=== PATIENT | female | born 1955 | race Two or more races ===

== ENCOUNTER → 2016-09-25 | Outpatient (CLI) | payer BC ==
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
== END ==
LOC: M PAIN 11:20
PROVIDERS: ATTEND Nurse Practitioner Family
DX: G89.29 Other chronic pain (principal); M12.88 Other specific arthropathies, not elsewhere classified, other specified site; M54.5 Low back pain; I10 Essential (primary) hypertension; E03.9 Hypothyroidism, unspecified; L40.9 Psoriasis, unspecified; K21.9 Gastro-esophageal reflux disease without esophagitis; F17.200 Nicotine dependence, unspecified, uncomplicated; Z91.041 Radiographic dye allergy status; Z88.8 Allergy status to other drugs, medicaments and biological substances; Z88.5 Allergy status to narcotic agent; Z91.040 Latex allergy status; Z91.010 Allergy to peanuts; Z79.82 Long term (current) use of aspirin; Z79.891 Long term (current) use of opiate analgesic; Z79.1 Long term (current) use of non-steroidal anti-inflammatories (NSAID); Z79.899 Other long term (current) drug therapy; Z86.711 Personal history of pulmonary embolism

== ENCOUNTER → 2016-10-13 | Outpatient (CLI) | payer BC ==
--- NOTE | 2016-10-21 00:33 | ECWPNPC ---
PATIENT NAME: BRENDA BARROSO : 1955 GENDER: FEMALE VISIT DATE: 10/13/2016 DISCHARGE DATE: 10/13/16 1552 VISIT LOCKED DATE TIME: PHYSICIAN: ANTHONY OLSEN RESOURCE: ANTHONY OLSEN REASON FOR APPOINTMENT 1. LOW BACK HISTORY OF PRESENT ILLNESS HISTORY OF PRESENT ILLNESS: PAIN THE PATIENT DESCRIBES THE PAIN... FALL RISK SCREENING: SCREENING :NO FALLS IN THE PAST YEAR TODAY'S VISIT: NOTES: RATES PAIN TODAY 10/10. DESCRIBES PAIN CONSTANT AND IS PRESENT IN LOW BACK, HIPS AND KNEES. WEANED FROM SEROUQUEL AND STARTED AMITRIPTILINE - DEVELOPED PALIPITATONS SO STOPPED AMITRIPTILINE. RESTARTED SEROQUEL. IS HAVING SEVERE HOT FLASHES, WHICH DISRUPTS SLEEP. WORST PAIN IS BACK AND HIPS. CAN NOT FIND A CONFORTABLE POSITION. CURRENT MEDICATIONS TAKING VOLTAREN 1 % GEL DIRECTED TRANSDERMAL FOUR TIMES DAILY NEEDED TO LOW BACK TAKING ASPIRIN 81 MG TABLET DELAYED RELEASE 1 TABLET ORALLY ONCE A DAY TAKING ZETIA 10 MG TABLET 1 TABLET ORALLY ONCE A DAY AT BEDTIME TAKING POTASSIUM CHLORIDE ER 10 MEQ TABLET EXTENDED RELEASE 1 TABLET WITH FOOD ORALLY AT BEDTIME EVERY OTHER DAY TAKING QUETIAPINE FUMARATE 100 MG TABLET 1 TABLET ORALLY ONCE A DAY AT BEDTIME TAKING TOPIRAMATE 50 MG TABLET 1 TABLET ORALLY TWICE A DAY TAKING HYDROCHLOROTHIAZIDE 12.5 MG TABLET 1 TABLET ORALLY ONCE A DAY TAKING TIROSINT 125 MCG CAPSULE 1 CAPSULE ORALLY ONCE A DAY TAKING PANTOPRAZOLE SODIUM 40 MG TABLET DELAYED RELEASE 1 TABLET ORALLY ONCE A DAY AT BEDTIME TAKING XANAX XR 1 MG TABLET EXTENDED RELEASE 24 HOUR 1 TABLET ORALLY TWICE A DAY TAKING OXYCONTIN 10 MG TABLET ER 12 HOUR ABUSE-DETERRENT 1 TABLET ORALLY EVERY 12 HRS TAKING IBUPROFEN 600 MG TABLET 1 TABLET ORALLY THREE TIMES A DAY NEEDED FOR PAIN NOT-TAKING AMITRIPTYLINE HCL 10 MG TABLET 1 -2 TABLET ORALLY BEFORE BEDTIME MEDICATION LIST REVIEWED AND RECONCILED WITH THE PATIENT PAST MEDICAL HISTORY PULMONARY EMBOLUS 2013 HYPERTENSION HYPOTHYROIDISM ARTHRITIS CHRONIC LOW BACK PAIN PSORIASIS ALLERGIES IV CONTRAST DYE: THROAT CLOSES: ALLERGY TYLENOL: VOMITING: SIDE EFFECTS PERCOCET: VOMITING: SIDE EFFECTS LATEX (FOR ALLERGY USE ONLY): SWELLING: ALLERGY PEANUT (DIAGNOSTIC): VOMITING: SIDE EFFECTS AMITRIPTYLINE HCL: PALPITATIONS: ALLERGY SOCIAL HISTORY GENERAL: TOBACCO USE ARE YOU A:CURRENT SMOKER LEARNING BARRIERS / SPECIAL NEEDS ORIENTED TO PLAN OF CARE: PATIENT, PAIN MANAGEMENT PATIENT, ORIENTED TO PLAN OF CARE: PATIENT, PAIN MANAGEMENT PATIENT. NEW PATIENT PAIN DIARY TODAY'S VISITNOTES FROM 0-10, WHAT LEVEL IS YOUR PAIN TODAY?0 PAIN CLINIC PFS, CLERGY, PUBLIC HEALTH REFERRALS PFS REFERRAL NEEDED?NO CLERGY REFERRAL NEEDED?NO PUBLIC HEALTH REFERRAL NEEDED?NO WAS THE PROVIDER NOTIFIED OF ANY PERTINENT INFO?NO PFS REFERRAL NEEDED?NO CLERGY REFERRAL NEEDED?NO PUBLIC HEALTH REFERRAL NEEDED?NO WAS THE PROVIDER NOTIFIED OF ANY PERTINENT INFO?NO REVIEW OF SYSTEMS CONSTITUTIONAL: ANY CHANGE IN YOUR MEDICAL CONDITION? NO . CHILLS NO . FEVER NO . INFECTION: DO YOU HAVE NEW INFECTIONS? NO . DO YOU HAVE HISTORY OF MRSA? NO . MUSCULOSKELETAL: ANY NEW PATTERNS OF PAIN OR NUMBNESS? NO . GASTROENTEROLOGY: ANY NEW CHANGE IN BOWEL CONTROL? NO . GENITOURINARY: ANY NEW CHANGE IN BLADDER CONTROL? NO . IS THERE A CHANCE YOU COULD BE ? NO . HEMATOLOGY/LYMPH: DO YOU TAKE ANY BLOOD THINNERS? (FOR EXAMPLE- COUMADIN, PLAVIX, AGGRENOX, PLATEL, PRADAXA, OR XARELTO) NO . WHEN WAS YOUR LAST DOSE? DATE: TIME: . NEUROLOGY: HAVE YOU FALLEN IN THE PAST 6 MONTHS? YES . ANY NEW EXTREMITY NUMBNESS OR WEAKNESS? NO . CARDIOLOGY: DO YOU HAVE A PACEMAKER OR DEFIBRILLATOR? NO . RESPIRATORY: HAVE YOU BEEN SICK IN THE PAST WEEK? NO . FEVER NO . FLU LIKE SYMPTOMS? NO . COUGH NO . INTEGUMENTARY: DO YOU HAVE ANY RASHES OR OPEN SORES? YES, PSORIASIS . ALLERGIC/IMMUNO: ARE YOU ALLERGIC TO SHELLFISH OR IV DYE? YES, IV DYE . ANY NEW ALLERGIES? NO . PSYCHIATRIC: DO YOU HAVE THOUGHTS OF HURTING YOURSELF OR SOMEONE ELSE? NO . ARE YOU ABUSED, NEGLECTED, OR IN AN UNSAFE ENVIRONMENT? NO . ENDOCRINOLOGY: ARE YOU DIABETIC? NO . OTHER: DO YOU NEED ANY PRESCRIPTIONS? YES . IF YES, PLEASE LIST: SEROQUEL . ANY NEW PROBLEMS WITH YOUR MEDICATIONS? YES, HAD PALPITATIONS WHILE TAKING AMITRIPTYLINE AND STOPPED TAKING . WHEN DID YOU LAST EAT? ____ . WHEN DID YOU LAST DRINK? ____ . WHAT DID YOU LAST DRINK? ____ . NAME OF PERSON DRIVING YOU HOME? ____ . DO YOU HAVE ANY OTHER QUESTIONS OR CONCERNS NO . REVIEWED BY: PROVIDER: ANTHONY MADRIGAL . VITAL SIGNS WT 144.4 LBS, HT 62 IN, BMI 26.41 INDEX, BP 153/87 MM HG, HR 92 /MIN, RR 16 /MIN, TEMP 97.7 F, OXYGEN SAT % 98, NA INITIALS TL 1448, REVIEWED BY: NOBLE. EXAMINATION GENERAL EXAMINATION: PSYCHALERT , ORIENTED X 3 , ANXIOUS AND TEARFUL. LUNGS:CLEAR TO AUSCULTATION BILATERALLY. HEART:HEART RATE REGULAR. MUSCULOSKELETAL:GAIT WIDEBASED, STEPPING. TENDER OVER LUMBAR SPINOUS PROCESSES, BUT NO TENDERNESS OVER BILATERAL TROCANTER REGIONS. , TRIGGER POINTS AND TIGHT FIBROUB BANDS OVER THE THORACIC AND LUMBAR PARAVERTEBRAL MUSCLES. NO FOCAL WEAKNESS. NEUROLOGIC EXAM:CN'S II-XII GROSSLY INTACT. POOR BALANCE. NO SIGNIFICANT SENSORY CHANGES NOTED. ASSESSMENTS LUMBAR FACET ARTHROPATHY - M12.88 (PRIMARY) LOW BACK PAIN - M54.5 OTHER CHRONIC PAIN - G89.29 TREATMENT LUMBAR FACET ARTHROPATHY START TRAMADOL HCL TABLET, 50 MG, 2 TABLET, ORALLY, EVERY 6 HRS MDD=6, 30 DAY(S), 180, REFILLS 0 NOTES: AT [facility] - CHECK ON EVENING PRIMROSE OIL, AND TUMERIC.CONSIDER [facility] SERVICES[facility] TRAMADOL 2 TBS AT SUPPER AND 2 AT BEDTIME. TAKE OXYCODONE 10 MG AT MORNING ONLY FOR 1 WEEK, THEN STOP. ADD TRAMADOL 50 MG IN MORNING. PROCEDURE CODES FA211 ESTABILISHED PATIENT [facility] CHARGE DISPOSITION & COMMUNICATION FOLLOW UP 26-28 DAYS ELECTRONICALLY SIGNED BY TAMMY PIPER ON 10/20/2016 AT 06:49 PM EDT DISCLAIMER : THIS IS A VISIT SUMMARY EXTRACTED FROM THE [employer] CHART. IT IS NOT A COPY OF THE [employer] PROGRESS NOTE. MAGEND
== END ==
LOC: M PAIN 14:20
PROVIDERS: ATTEND Nurse Practitioner Family
DX: Z09 Encounter for follow-up examination after completed treatment for conditions other than malignant neoplasm (principal); G89.29 Other chronic pain; M12.88 Other specific arthropathies, not elsewhere classified, other specified site; M54.5 Low back pain; I10 Essential (primary) hypertension; E03.9 Hypothyroidism, unspecified; L40.9 Psoriasis, unspecified; F17.200 Nicotine dependence, unspecified, uncomplicated; Z91.041 Radiographic dye allergy status; Z88.6 Allergy status to analgesic agent; Z88.5 Allergy status to narcotic agent; Z91.040 Latex allergy status; Z91.010 Allergy to peanuts; Z88.1 Allergy status to other antibiotic agents; Z79.1 Long term (current) use of non-steroidal anti-inflammatories (NSAID); Z79.82 Long term (current) use of aspirin; Z79.891 Long term (current) use of opiate analgesic; Z79.899 Other long term (current) drug therapy; Z86.711 Personal history of pulmonary embolism

== ENCOUNTER → 2016-11-07 | Outpatient (CLI) | payer BC ==
--- NOTE | 2016-11-21 02:20 | ECWPNPC ---
PATIENT NAME: BRENDA BARROSO : 1955 GENDER: FEMALE VISIT DATE: 11/07/2016 DISCHARGE DATE: 11/07/16 1323 VISIT LOCKED DATE TIME: PHYSICIAN: ANTHONY OLSEN RESOURCE: ANTHONY OLSEN REASON FOR APPOINTMENT 1. 26-28 DAY HISTORY OF PRESENT ILLNESS HISTORY OF PRESENT ILLNESS: PAIN THE PATIENT DESCRIBES THE PAIN... FALL RISK SCREENING: SCREENING :NO FALLS IN THE PAST YEAR TODAY'S VISIT: NOTES: WORST IS BACK, HIPS AND KNEES. IS STILL HAVING SEVERE HOT FLASHES WITH DRRENCHING SWEATS. DISTRESSED BECAUSE PCP DECREASED ALPRAZOLAM. HAD ADVERSE REACTION TO TUMERIC WITH OVERALL SWELLING RATES PAIN LEVEL 10/10. DESCRIBES PAIN CONSTANT, SHARP, STABBING AND SHOOTING. NOTES WORST AREAS OF PAINARE THE LOW BACK HIPS AND KNEES.. CURRENT MEDICATIONS TAKING VOLTAREN 1 % GEL DIRECTED TRANSDERMAL FOUR TIMES DAILY NEEDED TO LOW BACK TAKING ASPIRIN 81 MG TABLET DELAYED RELEASE 1 TABLET ORALLY ONCE A DAY TAKING ZETIA 10 MG TABLET 1 TABLET ORALLY ONCE A DAY AT BEDTIME TAKING POTASSIUM CHLORIDE ER 10 MEQ TABLET EXTENDED RELEASE 1 TABLET WITH FOOD ORALLY AT BEDTIME EVERY OTHER DAY TAKING QUETIAPINE FUMARATE 100 MG TABLET 1 TABLET ORALLY ONCE A DAY AT BEDTIME TAKING TOPIRAMATE 50 MG TABLET 1 TABLET ORALLY TWICE A DAY TAKING HYDROCHLOROTHIAZIDE 12.5 MG TABLET 1 TABLET ORALLY ONCE A DAY TAKING TIROSINT 125 MCG CAPSULE 1 CAPSULE ORALLY ONCE A DAY TAKING PANTOPRAZOLE SODIUM 40 MG TABLET DELAYED RELEASE 1 TABLET ORALLY ONCE A DAY AT BEDTIME TAKING TRAMADOL HCL 50 MG TABLET 2 TABLET ORALLY EVERY 6 HRS MDD=6 TAKING XANAX 0.5 MG TABLET 1 TABLET ORALLY Q 8 HRS NOT-TAKING OXYCONTIN 10 MG TABLET ER 12 HOUR ABUSE-DETERRENT 1 TABLET ORALLY EVERY 12 HRS NOT-TAKING IBUPROFEN 600 MG TABLET 1 TABLET ORALLY THREE TIMES A DAY NEEDED FOR PAIN NOT-TAKING AMITRIPTYLINE HCL 10 MG TABLET 1 -2 TABLET ORALLY BEFORE BEDTIME DISCONTINUED XANAX XR 1 MG TABLET EXTENDED RELEASE 24 HOUR 1 TABLET ORALLY TWICE A DAY MEDICATION LIST REVIEWED AND RECONCILED WITH THE PATIENT PAST MEDICAL HISTORY PULMONARY EMBOLUS 2013 HYPERTENSION HYPOTHYROIDISM ARTHRITIS CHRONIC LOW BACK PAIN PSORIASIS ALLERGIES IV CONTRAST DYE: THROAT CLOSES: ALLERGY TYLENOL: VOMITING: SIDE EFFECTS PERCOCET: VOMITING: SIDE EFFECTS LATEX (FOR ALLERGY USE ONLY): SWELLING: ALLERGY PEANUT (DIAGNOSTIC): VOMITING: SIDE EFFECTS AMITRIPTYLINE HCL: PALPITATIONS: ALLERGY SOCIAL HISTORY GENERAL: TOBACCO USE ARE YOU A:CURRENT SMOKER HOW MANY CIGARETTES A DAY DO YOU SMOKE?6-10 HOW SOON AFTER YOU WAKE UP DO YOU SMOKE YOUR FIRST CIGARETTE?AFTER 60 MIN HOW OFTEN DO YOU SMOKE CIGARETTES?EVERY DAY PATIENT COUNSELED ON THE DANGERS OF TOBACCO USE AND URGED TO QUIT:11/07/2016 ARE YOU INTERESTED IN QUITTING?THINKING ABOUT QUITTING HAS GUM AT HOME PREVIOUS QUIT ATTEMPTS?YES, WITHIN THE LAST 6 MONTHS. COUNSELED THE PATIENT ON SMOKING CESSATION, EDUCATION [id number]/04/2017 LUNG CANCER SCREENING SMOKING STATUS:CURRENT SMOKER PAIN CLINIC PFS, CLERGY, PUBLIC HEALTH REFERRALS CLERGY REFERRAL NEEDED?NO WAS THE PROVIDER NOTIFIED OF ANY PERTINENT INFO?NO PFS REFERRAL NEEDED?NO PUBLIC HEALTH REFERRAL NEEDED?NO PATIENT: ____. REVIEW OF SYSTEMS CONSTITUTIONAL: ANY CHANGE IN YOUR MEDICAL CONDITION? NO . CHILLS NO . FEVER NO . INFECTION: DO YOU HAVE NEW INFECTIONS? NO . DO YOU HAVE HISTORY OF MRSA? NO . MUSCULOSKELETAL: ANY NEW PATTERNS OF PAIN OR NUMBNESS? NO . GASTROENTEROLOGY: ANY NEW CHANGE IN BOWEL CONTROL? NO . GENITOURINARY: ANY NEW CHANGE IN BLADDER CONTROL? NO . IS THERE A CHANCE YOU COULD BE ? NO . HEMATOLOGY/LYMPH: DO YOU TAKE ANY BLOOD THINNERS? (FOR EXAMPLE- COUMADIN, PLAVIX, AGGRENOX, PLATEL, PRADAXA, OR XARELTO) NO . WHEN WAS YOUR LAST DOSE? DATE: TIME: . NEUROLOGY: HAVE YOU FALLEN IN THE PAST 6 MONTHS? YES, FELL DOWN THE STAIRS A COUPLE OF MONTHS AGO, NO INJURY . ANY NEW EXTREMITY NUMBNESS OR WEAKNESS? NO . CARDIOLOGY: DO YOU HAVE A PACEMAKER OR DEFIBRILLATOR? NO . RESPIRATORY: HAVE YOU BEEN SICK IN THE PAST WEEK? NO . FEVER NO . FLU LIKE SYMPTOMS? NO . COUGH NO . INTEGUMENTARY: DO YOU HAVE ANY RASHES OR OPEN SORES? YES, PSORIOSIS ON BACK OF NECK AND LABIA . ALLERGIC/IMMUNO: ARE YOU ALLERGIC TO SHELLFISH OR IV DYE? YES . ANY NEW ALLERGIES? NO . PSYCHIATRIC: DO YOU HAVE THOUGHTS OF HURTING YOURSELF OR SOMEONE ELSE? NO . ARE YOU ABUSED, NEGLECTED, OR IN AN UNSAFE ENVIRONMENT? NO . ENDOCRINOLOGY: ARE YOU DIABETIC? NO . OTHER: DO YOU NEED ANY PRESCRIPTIONS? NO . IF YES, PLEASE LIST: ____ . ANY NEW PROBLEMS WITH YOUR MEDICATIONS? NO . WHEN DID YOU LAST EAT? ____ . WHEN DID YOU LAST DRINK? ____ . WHAT DID YOU LAST DRINK? ____ . NAME OF PERSON DRIVING YOU HOME? ____ . DO YOU HAVE ANY OTHER QUESTIONS OR CONCERNS NO . REVIEWED BY: PROVIDER: ANTHONY MADRIGAL . VITAL SIGNS WT 144.2 LBS, HT 62 IN, BMI 26.37 INDEX, BP 131/71 MM HG, HR 85 /MIN, RR 16 /MIN, TEMP 98.7 F, OXYGEN SAT % 99%, NA INITIALS SC 12:13. EXAMINATION GENERAL EXAMINATION: PSYCHALERT , ORIENTED X 3 , ANXIOUS AND TEARFUL. LUNGS:CLEAR TO AUSCULTATION BILATERALLY. HEART:HEART RATE REGULAR. MUSCULOSKELETAL:GAIT WIDEBASED, STEPPING. TENDER OVER LUMBAR SPINOUS PROCESSES, BUT NO TENDERNESS OVER BILATERAL TROCANTER REGIONS. , TRIGGER POINTS AND TIGHT FIBROUS BANDS OVER THE THORACIC AND LUMBAR PARAVERTEBRAL MUSCLES. NO FOCAL WEAKNESS. NEUROLOGIC EXAM:CN'S II-XII GROSSLY INTACT. POOR BALANCE. NO SIGNIFICANT SENSORY CHANGES NOTED. ASSESSMENTS LUMBAR FACET ARTHROPATHY - M12.88 (PRIMARY) LOW BACK PAIN - M54.5 OTHER CHRONIC PAIN - G89.29 TREATMENT LUMBAR FACET ARTHROPATHY REFILL TRAMADOL HCL TABLET, 50 MG, 2 TABLET, ORALLY, EVERY 6 HRS MDD=6, 30 DAY(S), 180, REFILLS 0 NOTES: CONTNUE CURRENT MEDS. WALK DAILY. CONTINUE ACTIVITYCONSIDER TREATMENT [facility] AT [facility]. PROCEDURE CODES FA211 ESTABILISHED PATIENT [facility] CHARGE DISPOSITION & COMMUNICATION FOLLOW UP 7 WEEKS ELECTRONICALLY SIGNED BY TAMMY PIPER ON 11/20/2016 AT 08:24 AM EDT DISCLAIMER : THIS IS A VISIT SUMMARY EXTRACTED FROM THE [employer] CHART. IT IS NOT A COPY OF THE [employer] PROGRESS NOTE. MAGEND
== END ==
LOC: M PAIN 11:40
PROVIDERS: ATTEND Nurse Practitioner Family
DX: G89.29 Other chronic pain (principal); M12.88 Other specific arthropathies, not elsewhere classified, other specified site; M54.5 Low back pain; N95.1 Menopausal and female climacteric states; R61 Generalized hyperhidrosis; I10 Essential (primary) hypertension; E03.9 Hypothyroidism, unspecified; L40.9 Psoriasis, unspecified; F17.200 Nicotine dependence, unspecified, uncomplicated; Z91.041 Radiographic dye allergy status; Z88.6 Allergy status to analgesic agent; Z88.5 Allergy status to narcotic agent; Z91.040 Latex allergy status; Z91.010 Allergy to peanuts; Z88.8 Allergy status to other drugs, medicaments and biological substances; Z79.82 Long term (current) use of aspirin; Z79.891 Long term (current) use of opiate analgesic; Z79.899 Other long term (current) drug therapy

== ENCOUNTER → 2016-11-20 | Outpatient (CLI) | payer BC ==
--- NOTE | 2016-12-01 23:56 | ECWPNPC ---
PATIENT NAME: BRENDA BARROSO : 1955 GENDER: FEMALE VISIT DATE: 11/20/2016 DISCHARGE DATE: 11/20/16 1157 VISIT LOCKED DATE TIME: PHYSICIAN: ATNHONY OLSEN RESOURCE: ANTHONY OLSEN REASON FOR APPOINTMENT 1. BACK HISTORY OF PRESENT ILLNESS HISTORY OF PRESENT ILLNESS: PAIN THE PATIENT DESCRIBES THE PAIN... FALL RISK SCREENING: SCREENING :NO FALLS IN THE PAST YEAR TODAY'S VISIT: NOTES: REPORTS HAD ADVERSE REACTION WITH TRAMADOL WITH SWOLEN TONUE, THOUGHTS OF SELF INJURY, RASH AND ELEVATED HEART RATE. STATES PAIN IS &QUOT;OVER THE TOP&QUOT;. STATES BEGAN HAVING FREQ DIARRHEA - JELLY LIKE. HAS BEEN USING A TEA AND GINGERALE FOR DIARRHEA. IS ALSO REPORTING THAT ANXIETY IS VERY HIGH AND IS ON WAITING LIST. WORST AREAS BOTH HIPS, KNEES AND LOW BACK. IS TAKING MOTRIN 800MG Q 6 HRS WITH SOME RELIEF NOTED. . CURRENT MEDICATIONS TAKING VOLTAREN 1 % GEL DIRECTED TRANSDERMAL FOUR TIMES DAILY NEEDED TO LOW BACK TAKING ASPIRIN 81 MG TABLET DELAYED RELEASE 1 TABLET ORALLY ONCE A DAY TAKING ZETIA 10 MG TABLET 1 TABLET ORALLY ONCE A DAY AT BEDTIME TAKING POTASSIUM CHLORIDE ER 10 MEQ TABLET EXTENDED RELEASE 1 TABLET WITH FOOD ORALLY AT BEDTIME EVERY OTHER DAY TAKING QUETIAPINE FUMARATE 100 MG TABLET 1 TABLET ORALLY ONCE A DAY AT BEDTIME TAKING TOPIRAMATE 50 MG TABLET 1 TABLET ORALLY TWICE A DAY TAKING HYDROCHLOROTHIAZIDE 12.5 MG TABLET 1 TABLET ORALLY ONCE A DAY TAKING TIROSINT 125 MCG CAPSULE 1 CAPSULE ORALLY ONCE A DAY TAKING PANTOPRAZOLE SODIUM 40 MG TABLET DELAYED RELEASE 1 TABLET ORALLY ONCE A DAY AT BEDTIME TAKING XANAX 0.5 MG TABLET 1 TABLET ORALLY Q 8 HRS NOT-TAKING TRAMADOL HCL 50 MG TABLET 2 TABLET ORALLY EVERY 6 HRS MDD=6 NOT-TAKING OXYCONTIN 10 MG TABLET ER 12 HOUR ABUSE-DETERRENT 1 TABLET ORALLY EVERY 12 HRS NOT-TAKING IBUPROFEN 600 MG TABLET 1 TABLET ORALLY THREE TIMES A DAY NEEDED FOR PAIN NOT-TAKING AMITRIPTYLINE HCL 10 MG TABLET 1 -2 TABLET ORALLY BEFORE BEDTIME MEDICATION LIST REVIEWED AND RECONCILED WITH THE PATIENT PAST MEDICAL HISTORY PULMONARY EMBOLUS 2013 HYPERTENSION HYPOTHYROIDISM ARTHRITIS CHRONIC LOW BACK PAIN PSORIASIS ALLERGIES IV CONTRAST DYE: THROAT CLOSES: ALLERGY TYLENOL: VOMITING: SIDE EFFECTS PERCOCET: VOMITING: SIDE EFFECTS LATEX (FOR ALLERGY USE ONLY): SWELLING: ALLERGY PEANUT (DIAGNOSTIC): VOMITING: SIDE EFFECTS AMITRIPTYLINE HCL: PALPITATIONS: ALLERGY TRAMADOL HCL: DIARRHEA,SPASTIC MOVEMENTS, FELT LOUSY ALL OVER, FELT LIKE SHE WAS IN A FOG , SWOLLEN TONGUE: ALLERGY NAPROXEN: ANGIOEDEMA: ALLERGY SOCIAL HISTORY GENERAL: PAIN CLINIC PFS, CLERGY, PUBLIC HEALTH REFERRALS CLERGY REFERRAL NEEDED?NO WAS THE PROVIDER NOTIFIED OF ANY PERTINENT INFO?NO PFS REFERRAL NEEDED?NO PUBLIC HEALTH REFERRAL NEEDED?NO PATIENT: ____. REVIEW OF SYSTEMS CONSTITUTIONAL: ANY CHANGE IN YOUR MEDICAL CONDITION? NO . CHILLS NO . FEVER NO . INFECTION: DO YOU HAVE NEW INFECTIONS? NO . DO YOU HAVE HISTORY OF MRSA? YES, YEARS AGO ON LEFT BREAST . MUSCULOSKELETAL: ANY NEW PATTERNS OF PAIN OR NUMBNESS? NO . GASTROENTEROLOGY: ANY NEW CHANGE IN BOWEL CONTROL? YES, &QUOT;STOOLS ARE LIKE JELLO&QUOT; --FROM TRAMADOL . GENITOURINARY: ANY NEW CHANGE IN BLADDER CONTROL? NO . IS THERE A CHANCE YOU COULD BE ? NO . HEMATOLOGY/LYMPH: DO YOU TAKE ANY BLOOD THINNERS? (FOR EXAMPLE- COUMADIN, PLAVIX, AGGRENOX, PLATEL, PRADAXA, OR XARELTO) NO . WHEN WAS YOUR LAST DOSE? DATE: TIME: . NEUROLOGY: HAVE YOU FALLEN IN THE PAST 6 MONTHS? YES, MONTHS AGO-NO INJURY . ANY NEW EXTREMITY NUMBNESS OR WEAKNESS? NO . CARDIOLOGY: DO YOU HAVE A PACEMAKER OR DEFIBRILLATOR? NO . RESPIRATORY: HAVE YOU BEEN SICK IN THE PAST WEEK? NO . FEVER NO . FLU LIKE SYMPTOMS? NO . COUGH NO . INTEGUMENTARY: DO YOU HAVE ANY RASHES OR OPEN SORES? YES, PSORIOSIS IN VAGINAL AREA IS BLEEDING . ALLERGIC/IMMUNO: ARE YOU ALLERGIC TO SHELLFISH OR IV DYE? NO . ANY NEW ALLERGIES? NO . PSYCHIATRIC: DO YOU HAVE THOUGHTS OF HURTING YOURSELF OR SOMEONE ELSE? YES, HAD &QUOT;DARK THOUGHTS&QUOT; WHEN TAKING TRAMADOL . ARE YOU ABUSED, NEGLECTED, OR IN AN UNSAFE ENVIRONMENT? NO . ENDOCRINOLOGY: ARE YOU DIABETIC? NO . OTHER: DO YOU NEED ANY PRESCRIPTIONS? NO . IF YES, PLEASE LIST: ____ . ANY NEW PROBLEMS WITH YOUR MEDICATIONS? NO . WHEN DID YOU LAST EAT? ____ . WHEN DID YOU LAST DRINK? ____ . WHAT DID YOU LAST DRINK? ____ . NAME OF PERSON DRIVING YOU HOME? ____ . DO YOU HAVE ANY OTHER QUESTIONS OR CONCERNS YES, TRAMADOL NOT AGREEING WITH HER. SHE HAS HAD &QUOT;DARK THOUGHTS&QUOT;, DIARRHEA,SWOLLEN TONGUE, ABD PAIN, HEART RACED, SPASTIC MOVEMENT, FELT LIKE SHE WAS IN A FOG. IT ALSO DID NOT SEEM TO HELP HER PAIN. . REVIEWED BY: PROVIDER: ANTHONY MADRIGAL . VITAL SIGNS WT 137.2 LBS, HT 62 IN, BMI 25.09 INDEX, BP 145/90 MM HG, HR 115 /MIN, RR 16 /MIN, TEMP 99.9 F, OXYGEN SAT % 98%, NA INITIALS SC 10:26, REVIEWED BY: AD. EXAMINATION GENERAL EXAMINATION: PSYCHALERT , ORIENTED X 3 , ANXIOUS AND TEARFUL. LUNGS:CLEAR TO AUSCULTATION BILATERALLY. HEART:HEART RATE REGULAR. MUSCULOSKELETAL:GAIT WIDEBASED, STEPPING. TENDER OVER LUMBAR SPINOUS PROCESSES, BUT NO TENDERNESS OVER BILATERAL TROCANTER REGIONS. , TRIGGER POINTS AND TIGHT FIBROUS BANDS OVER THE THORACIC AND LUMBAR PARAVERTEBRAL MUSCLES. NO FOCAL WEAKNESS. NEUROLOGIC EXAM:CN'S II-XII GROSSLY INTACT. POOR BALANCE. NO SIGNIFICANT SENSORY CHANGES NOTED. ASSESSMENTS LUMBAR FACET ARTHROPATHY - M12.88 (PRIMARY) LOW BACK PAIN - M54.5 OTHER CHRONIC PAIN - G89.29 TREATMENT LUMBAR FACET ARTHROPATHY START VICOPROFEN TABLET, 7.5-200 MG, 1 TABLET NEEDED, ORALLY, EVERY 8-12 HRS MDD 2, 30 DAY(S), 60, REFILLS 0 START HYDROCODONE-IBUPROFEN TABLET, 10-200 MG, 1 TABLET NEEDED, ORALLY, EVERY 8-12 HRS PRN PAIN MDD=2, 30 DAY(S), 60, REFILLS 0 [facility] MRI HIP WITHOUT [id number] 11/20/2016 11:08:58 AM > HIP PAIN NOTES: UTOX TODAY NARCOTIC AGREEMENT TODAY. DISPOSE/COUNT TRAMADOL. CLINICAL NOTES: ISTOP REGISTRY REVIEWED AND DEMNOSTRATES COMPLLIANCE. BRINGS IN MEDICATIONS WHICH IS APPROPRIATE FOR WHAT WAS DISPENSED. RECENT URINE TOXICOLOGY REVIEWED. NO UNAUTHORIZED MEDICATIONS. NO ILLICIT SUBSTANCES AND PRESCRIBED MEDICATIONS WERE PRESENT. PREVENTIVE MEDICINE PAIN CLINIC TEACHING: MEDICATIONS PRINTED INFORMATION ON VICOPROFEN GIVEN TO AND EXPLAINED TO PT. AND SHE VERBALIZED UNDERSTANDING. PROCEDURE CODES [id number] ESTABILISHED PATIENT FORMERLY [facility] CHARGE DISPOSITION & COMMUNICATION FOLLOW UP [address] BLUE (REASON: DISCUSS PAIN TREATMENT OPTIONS INCLUDING DCS) ELECTRONICALLY SIGNED BY TAMMY PIPER ON 12/01/2016 AT 04:35 PM EDT DISCLAIMER : THIS IS A VISIT SUMMARY EXTRACTED FROM THE [employer] CHART. IT IS NOT A COPY OF THE [employer] PROGRESS NOTE. XAVIER
== END | disposition home or self-care (01) ==
LOC: M PAIN 10:00
PROVIDERS: ATTEND Nurse Practitioner Family
DX: G89.29 Other chronic pain (principal); M12.88 Other specific arthropathies, not elsewhere classified, other specified site; M54.5 Low back pain; I10 Essential (primary) hypertension; E03.9 Hypothyroidism, unspecified; L40.9 Psoriasis, unspecified; Z86.711 Personal history of pulmonary embolism; Z79.82 Long term (current) use of aspirin; Z79.899 Other long term (current) drug therapy; Z88.5 Allergy status to narcotic agent; Z88.8 Allergy status to other drugs, medicaments and biological substances; Z91.040 Latex allergy status; Z91.041 Radiographic dye allergy status; Z91.010 Allergy to peanuts

== ENCOUNTER → 2023-08-22 | Outpatient (CLI) | payer MEDICARE, BC | LOC: M RAD 08:07 | PROVIDERS: ATTEND Internal Medicine Pulmonary Disease | DX: R91.8 Other nonspecific abnormal finding of lung field (principal); J47.9 Bronchiectasis, uncomplicated; J43.2 Centrilobular emphysema; I70.0 Atherosclerosis of aorta; I25.10 Atherosclerotic heart disease of native coronary artery without angina pectoris ==

== ENCOUNTER 2023-10-03 07:26 | Day surgery (SDC) | payer MEDICARE ==
[~2023-10-03] VITALS: Ht 157.5 cm; Wt 62.5 kg
[~2023-10-03 07:26] MED LIST: ALLO300T2 PO; ALPR0.5T3 PO; EZET10TA21 PO; HYDR-3490 PO; LEVO112C PO; METO1TAB32 PO; OXYC-517 PO; OXYC30TA72 PO; PANT20TA6 PO; POTA10CA60 PO; PROM25TA12 PO; RAME8TAB2 PO; TOPI-21 PO; TRAZ-257 PO
[2023-10-03] MEDS ORDERED: SUGAMMADEX SODIUM 500 MG/5 ML VIAL (BRIDION) As Ordered ONE (07:46)
[2023-10-03] MEDS ORDERED: ONDANSETRON 4MG 2ML VIAL As Ordered ONE (07:47)
[2023-10-03] MEDS ORDERED: LIDOCAINE 2% 100MG/5ML SDV (FOR ANES.) As Ordered ONE (07:47)
[2023-10-03] MEDS ORDERED: ROCURONIUM BROMIDE 50MG/5ML VIAL As Ordered ONE (07:47)
[2023-10-03] MEDS ORDERED: propofoL 200 MG/20 ML VIAL As Ordered ONE (07:47)
[2023-10-03] MEDS ORDERED: MIDAZOLAM INJ 2MG/2ML VIAL As Ordered ONE (07:51)
[2023-10-03] MEDS ORDERED: fentaNYL 100 MCG/2 ML INJECTION As Ordered ONE (07:51)
[2023-10-03] MEDS ORDERED: LR 1,000 ML IV SCH (08:10)
[2023-10-03] MEDS: LIDOCAINE PRES-FREE 2% 10ML AMP INH ONE (08:34)
[2023-10-03] MEDS: ALBUTEROL SULFATE 2.5MG/0.5ML INH NEB SOLN INH ONE (08:34)
[2023-10-03] MEDS ORDERED: ACETAMINOPHEN 1000MG 100ML IV BAG As Ordered ONE (09:20)
[2023-10-03] MEDS: EPINEPHrine 1MG/10ML SYRINGE 1.5IN As Ordered ONE (10:00)
[2023-10-03] MEDS: CETACAINE SPRAY 5GM As Ordered ONE (10:00)
[2023-10-03] MEDS ORDERED: ONDANSETRON 4MG 2ML VIAL IV PRN (10:25)
[2023-10-03] MEDS ORDERED: fentaNYL 100 MCG/2 ML INJECTION IV PRN (10:25)
[2023-10-03 13:02] VITALS: BP 115/70; TEMP 98.3; O2SAT 94
== END 2023-10-03 13:30 | disposition home or self-care (01) ==
LOC: M SDC 07:26
PROVIDERS: ATTEND Internal Medicine Pulmonary Disease
DX: R91.8 Other nonspecific abnormal finding of lung field (principal); Z91.048 Other nonmedicinal substance allergy status; Z91.040 Latex allergy status; Z91.010 Allergy to peanuts; Z88.5 Allergy status to narcotic agent; Z79.899 Other long term (current) drug therapy; Z87.891 Personal history of nicotine dependence
CPT/HCPCS: 31624; 31627; 31628; 31629; 31654; 71045; 76000; 87070; 87102; 87116; 87205; 87206; 88108; 88173; 88305; 88313; J0131; J0171; J1100; J2250; J2405; J3010; S2900

== ENCOUNTER → 2023-11-19 | Outpatient (CLI) | payer MEDICARE | LOC: M PLARAD 14:05 | PROVIDERS: ATTEND Internal Medicine Pulmonary Disease | DX: R91.8 Other nonspecific abnormal finding of lung field (principal) | CPT/HCPCS: 78815; A9552 ==

== ENCOUNTER → 2024-08-04 | Outpatient (CLI) | payer MEDICARE ==
[~2024-08-04] MED LIST changes: -POTA10CA60 PO; +POTA10CA70 PO
== END ==
LOC: M PLARAD 12:08
PROVIDERS: ATTEND Internal Medicine Pulmonary Disease
DX: R91.8 Other nonspecific abnormal finding of lung field (principal)
CPT/HCPCS: 78815; A9552